=== PATIENT | male | born 1945 | race Native Hawaiian/Other Pacific Islander ===

== ENCOUNTER 2018-02-06 19:41 | Emergency (ER) | payer OTHER ==
[~2018-02-06] VITALS: Ht 170.2 cm; Wt 95.3 kg
[2018-02-06 19:55] VITALS: BP 168/76; TEMP 98.3
[2018-02-06 19:59] LABS: PLATELET COUNT 178 K/uL (142-355)
[2018-02-06 20:09] LABS: POTASSIUM 3.2 mmol/L (3.6-5.2)
[2018-02-07] MEDS ORDERED: DOCU100C10 PO (00:58)
[2018-02-07] MEDS ORDERED: ACID REDUCER10 M1 PO (00:59)
[2018-02-07] MEDS ORDERED: QUET300T PO (01:01)
[2018-02-07] MEDS ORDERED: FURO20TA67 PO (01:02)
[2018-02-07] MEDS ORDERED: SEROQUEL100 MG PO (01:04)
[2018-02-07] MEDS ORDERED: TOPIRAMATE25 M1 PO (01:07)
[2018-02-07] MEDS ORDERED: DIVALPROEX250 MG PO (01:08)
[2018-02-07] MEDS ORDERED: ONDA4TAB3 PO (01:09)
[2018-03-02] MEDS ORDERED: ZIPR20IN IM (10:58)
[2018-03-02] MEDS ORDERED: TRAZ50TA36 PO (11:00)
[2018-03-02] MEDS ORDERED: RISP1TAB PO (11:01)
[2018-03-02] MEDS ORDERED: RISP0.25 PO (11:01)
[2018-03-02] MEDS ORDERED: TYLENOL325 MG PO (11:02)
[2018-03-02] MEDS ORDERED: NUEDEXTA 20-10MG CAP PO (11:02)
[2018-03-02] MEDS ORDERED: DONE5TAB PO (11:03)
[2018-03-02] MEDS ORDERED: OLAN10INJ IM (11:04)
[2018-03-02] MEDS ORDERED: QUET100T2 PO (11:04)
[2018-03-02] MEDS ORDERED: MEMA5TAB PO (11:05)
[2018-03-02] MEDS ORDERED: LACT12LO TOP (11:06)
[2018-03-02] MEDS ORDERED: ESCI10TA PO (11:06)
[2018-03-02] MEDS ORDERED: MAGNSUS68 PO (11:07)
[2018-03-24] MEDS ORDERED: OLAN10INJ IM (14:19)
[2018-03-24] MEDS ORDERED: BENZ1TAB43 PO (14:20)
[2018-03-24] MEDS ORDERED: RISP0.25 PO (14:20)
[2018-03-24] MEDS ORDERED: MUPI2OIN2 TOP (14:21)
[2018-03-24] MEDS ORDERED: OLAN2.5T2 PO (14:22)
[2018-03-24] MEDS ORDERED: OLANZAPINE10 MG PO (14:22)
[2018-03-24] MEDS ORDERED: SCOP1.5D TOP (14:22)
[2018-03-24] MEDS ORDERED: VALPROIC ACID10 ML PO (14:22)
[2018-03-24] MEDS ORDERED: CYAN10009 IM (14:23)
== END 2018-02-06 21:48 | disposition other institution (70) ==
LOC: ED 19:41
DX: F60.3 Borderline personality disorder (principal); Z04.6 Encounter for general psychiatric examination, requested by authority; I10 Essential (primary) hypertension
CPT/HCPCS: 36415; 80053; 81000; 85027; 93005; 99285

== ENCOUNTER 2018-03-12 16:00 | Emergency (ER) | payer OTHER ==
[~2018-03-12] VITALS: Ht 172.7 cm; Wt 76.7 kg
[~2018-03-12 16:00] MED LIST: ACID REDUCER10 M1 PO; DIVALPROEX250 MG PO; DOCU100C10 PO; DONE5TAB PO; ESCI10TA PO; FURO20TA67 PO; LACT12LO TOP; MAGNSUS68 PO; MEMA5TAB PO; NUEDEXTA 20-10MG CAP PO; OLAN10INJ IM; ONDA4TAB3 PO; QUET100T2 PO; QUET300T PO; RISP0.25 PO; RISP1TAB PO; SEROQUEL100 MG PO; TOPIRAMATE25 M1 PO; TRAZ50TA36 PO; TYLENOL325 MG PO; ZIPR20IN IM
[2018-03-12 16:40] LABS: PLATELET COUNT 174 K/uL (142-355)
[2018-03-12 17:47] VITALS: BP 165/83; TEMP 97.8
[2018-03-12] MEDS ORDERED: LEVAQUIN250 MG PO (18:24)
[2018-03-12] MEDS ORDERED: EFFER-K10 MEQ PO (18:29)
[2018-03-12] MEDS ORDERED: TRAZODONE HYDRO50 MG PO (18:32)
[2018-03-12] MEDS ORDERED: RISP0.25 PO (18:35)
== END 2018-03-12 17:50 | disposition other institution (70) ==
LOC: ED 16:00
DX: Z00.8 Encounter for other general examination (principal); R46.89 Other symptoms and signs involving appearance and behavior; L03.116 Cellulitis of left lower limb; L03.115 Cellulitis of right lower limb
CPT/HCPCS: 36415; 80053; 81000; 83605; 85027; 93005; 99285